=== PATIENT | male | born 1985 | race American Indian/Alaskan Native ===

== ENCOUNTER 2020-10-09 09:51 | Emergency (ER) | payer SELFPAY ==
--- NOTE | 2020-10-09 10:30 | Emergency Department Report ---
ED ENT HPI - General Chief complaint: Skin/Abscess/Foreign Body Stated complaint: RT EAR INFECTION Time Seen by Provider: 10/09/20 10:24 Source: patient Mode of arrival: Ambulatory Limitations: No Limitations - History of Present Illness Initial comments: 35-year-old male presents to the emergency room for right ear pain and foreign body. Patient states that this has been going on for 3 days he believes he got up Q-tip cotton stuck into his right ear. He noticed today that it started to drain increased pain. Denies any fever chills. Denies any past medical history does not take any medications on a daily basis and has no known drug allergies. MD complaint: ear pain, foreign body Onset/Timin -: days(s) Location: R ear Severity: moderate Severity scale (0 -10): 4 Consistency: constant Improves with: none Worsens with: none - Related Data Previous Rx's Medication Instructions Recorded Last Taken Type Cyclobenzaprine [Flexeril 10mg] 10 mg PO Q12H PRN #14 tablet 08/25/18 Unknown Rx Ibuprofen [Motrin] 800 mg PO Q8HR PRN #12 tablet 08/25/18 Unknown Rx Amoxicillin/Potassium Clav 1 each PO BID 10 Days #20 tablet 10/09/20 Unknown Rx [Augmentin 875-125 Tablet] Ciprofloxacin HCl/Dexameth 2 drop AD BID 10 Days #7.5 ml 10/09/20 Unknown Rx [Ciprodex Otic Suspension] Allergies Allergy/AdvReac Type Severity Reaction Status Date / Time No Known Allergies Allergy Verified 08/25/18 00:10 ED Dental HPI - General Chief complaint: Skin/Abscess/Foreign Body Stated complaint: RT EAR INFECTION Time Seen by Provider: 10/09/20 10:24 Source: patient Mode of arrival: Ambulatory Limitations: No Limitations - Related Data Previous Rx's Medication Instructions Recorded Last Taken Type Cyclobenzaprine [Flexeril 10mg] 10 mg PO Q12H PRN #14 tablet 08/25/18 Unknown Rx Ibuprofen [Motrin] 800 mg PO Q8HR PRN #12 tablet 08/25/18 Unknown Rx Amoxicillin/Potassium Clav 1 each PO BID 10 Days #20 tablet 10/09/20 Unknown Rx [Augmentin 875-125 Tablet] Ciprofloxacin HCl/Dexameth 2 drop AD BID 10 Days #7.5 ml 10/09/20 Unknown Rx [Ciprodex Otic Suspension] Allergies Allergy/AdvReac Type Severity Reaction Status Date / Time No Known Allergies Allergy Verified 08/25/18 00:10 ED Review of Systems ROS: Stated complaint: RT EAR INFECTION Other details as noted in HPI Comment: All other systems reviewed and negative ED Past Medical Hx - Past Medical History Previous Medical History?: No - Surgical History Past Surgical History?: No - Social History Smoking Status: Never Smoker Substance Use Type: None - Medications Home Medications: Home Medications Medication Instructions Recorded Confirmed Last Taken Type Cyclobenzaprine [Flexeril 10mg] 10 mg PO Q12H PRN #14 tablet 08/25/18 Unknown Rx Ibuprofen [Motrin] 800 mg PO Q8HR PRN #12 tablet 08/25/18 Unknown Rx Amoxicillin/Potassium Clav 1 each PO BID 10 Days #20 tablet 10/09/20 Unknown Rx [Augmentin 875-125 Tablet] Ciprofloxacin HCl/Dexameth 2 drop AD BID 10 Days #7.5 ml 10/09/20 Unknown Rx [Ciprodex Otic Suspension] ED Physical Exam - General Limitations: No Limitations General appearance: alert, in no apparent distress - Head Head exam: Present: atraumatic, normocephalic - Eye Eye exam: Present: normal appearance - ENT ENT exam: Present: mucous membranes moist - Expanded ENT Exam Expanded TM/Canal exam: Erythema: Right TM, Loss of Landmarks: Right TM, Foreign Body: Right TM, Canal Discharge: Right TM, Canal Tenderness: Right TM - Neck Neck exam: Present: normal inspection, full ROM - Respiratory Respiratory exam: Absent: accessory muscle use - Cardiovascular Cardiovascular Exam: Present: regular rate, normal rhythm. Absent: systolic murmur, diastolic murmur, rubs, gallop - Back Exam Back exam: Present: normal inspection - Neurological Exam Neurological exam: Present: alert, oriented X3, normal gait - Psychiatric Psychiatric exam: Present: normal affect, normal mood - Skin Skin exam: Present: warm, dry, intact, normal color. Absent: rash ED Medical Decision Making - Medical Decision Making 35-year-old male presents to the emergency room for right ear pain and foreign body. Patient states that this has been going on for 3 days he believes he got up Q-tip cotton stuck into his right ear. He noticed today that it started to drain increased pain. Denies any fever chills. Denies any past medical history does not take any medications on a daily basis and has no known drug allergies. Patient be placed on Augmentin as well as Ciprodex for otitis externa and possible otitis media secondary to foreign body is still stuck in the ear. Discussed with patient that the Q-tip is too far back and not able to reach it with alligator forceps or a curette. I recommend patient to follow-up with a senior clinical research associate. Critical care attestation.: If time is entered above; I have spent that time in minutes in the direct care of this critically ill patient, excluding procedure time. ED Disposition Clinical Impression: Otitis externa, Foreign body in right ear Disposition: [id number] TO HOME OR SELFCARE Is pt being admited?: No Does the pt Need Aspirin: No Condition: Stable Instructions: Ear Drops, Adult, [id number], Otitis Externa, [id number], Ear Foreign Body, [id number] Additional Instructions: Complete antibiotics as prescribed. Is very important for you to follow-up with the senior clinical research associate. I have listed 1 below for your convenience. Tylenol or ibuprofen as needed for pain management. Please refrain from putting any objects in ears. Prescriptions: Amoxicillin/Potassium Clav [Augmentin 875-125 Tablet] 1 each PO BID 10 Days #20 tablet Ciprofloxacin HCl/Dexameth [Ciprodex Otic Suspension] 2 drop AD BID 10 Days #7.5 ml Referrals: PRIMARY CAREMD [Primary Care Provider] - 3-5 Days CORKY BOONE MD [Staff Physician] - 3-5 Days
[2020-10-09 10:40] VITALS: BP 133/82
== END 2020-10-09 10:40 | disposition home or self-care (01) ==
LOC: ED 09:51
DX: S00.451A Superficial foreign body of right ear, initial encounter (principal); H60.91 Unspecified otitis externa, right ear; Z79.899 Other long term (current) drug therapy; W45.8XXA Other foreign body or object entering through skin, initial encounter; Y93.89 Activity, other specified; Y92.89 Other specified places as the place of occurrence of the external cause; Y99.8 Other external cause status
CPT/HCPCS: 99281